=== PATIENT | female | born 1945 ===

== ENCOUNTER 2024-10-01 10:30 | Inpatient (IN) | payer OTHER ==
[~2024-10-01] VITALS: Ht 162.6 cm; Wt 59.0 kg
[2024-10-01] MEDS ORDERED: ENALAPRIL MALEA10 MG PO (15:56)
[2024-10-01] MEDS ORDERED: ROSUVASTATIN CA20 MG PO (15:57)
[2024-10-01] MEDS ORDERED: D3-5000125 MCG PO (15:57)
[2024-10-01 16:05] VITALS: BP 128/87
[2024-10-03 13:08] LABS: RH NEGATIVE
[2024-10-06] MEDS ORDERED: ACETAMINOPHEN 500 MG GEL..CAP PO SCH (18:51)
[2024-10-06] MEDS ORDERED: RINGERS SOLUTION,LACTATED 1,000 ML IV SCH (19:00)
[2024-10-06] MEDS ORDERED: ONDANSETRON HCL 2 MG/ML VIAL IV PRN (19:00)
[2024-10-06] MEDS ORDERED: ENALAPRILAT DIHYDRATE 1.25 MG/ML VIAL IV PRN (19:00)
[2024-10-06] MEDS ORDERED: TRAMADOL HCL 50 MG TABLET PO PRN (19:00)
[2024-10-06] MEDS ORDERED: MORPHINE SULFATE 2 MG/ML CARTRIDGE IV PRN (19:00)
[2024-10-06 19:53] LABS: HEMATOCRIT 33.3 % (36.0-45.00); HEMOGLOBIN 11.1 g/dL (12.0-15.00); MEAN CELL VOLUME 86.4 fL (80.00-100.00); MEAN CORPUSCULAR HEMOGLOBIN 28.8 pg (27.00-32.0); MEAN CORPUSCULAR HGB CONC 33.3 g/dl (32.0-36.0); PLATELET COUNT 244 K/uL (150-450); RED BLOOD COUNT 3.85 M/uL (4.00-6.00); RED CELL DISTRIBUTION WIDTH 13.8 % (11.5-14.5)
[2024-10-06 20:07] LABS: ALBUMIN 3.4 gm/dL (3.4-5.0); CALCIUM 8.5 mg/dL (8.5-10.1); CREATININE SERUM 0.82 mg/dL (0.55-1.02); GFR 67.78; MAGNESIUM 1.8 mg/dL (1.8-2.4); PHOSPHOROUS 3.9 mg/dL (2.5-4.9); POTASSIUM 3.95 mEq/L (3.5-5.1)
[2024-10-06] MEDS ORDERED: SIMETHICONE 125 MG CAPSULE PO SCH (21:00)
[2024-10-06] MEDS ORDERED: FAMOTIDINE/PF 20 MG/10 ML SYRINGE IV PUSH SCH (21:00)
[2024-10-06 21:52] VITALS: BP 144/66; O2SAT 97
[2024-10-06] MEDS ORDERED: POVIDONE-IODINE 118 ML BOTT TOP ONE (22:00)
[2024-10-06] MEDS ORDERED: DIBUCAINE 30 GM TUBE RECTAL ONE (22:00)
[2024-10-06] MEDS ORDERED: HEMOSTATIC MATRIX 1 KIT KIT TOP ONE (22:00)
[2024-10-06] MEDS ORDERED: LIDOCAINE HCL 1%/EPINEPHRINE 20ML VIAL IJ ONE (22:00)
[2024-10-06] MEDS ORDERED: METRONIDAZOLE/SODIUM CHLORIDE 500 MG/100 ML PIGGYBACK IV ONE (22:00)
[2024-10-06] MEDS ORDERED: CEFTRIAXONE SODIUM 2,000 MG VIAL IV ONE (22:00)
[2024-10-06] MEDS ORDERED: BUPIVACAINE HCL 30 ML VIAL IJ ONE (22:00)
[2024-10-07 00:18] VITALS: BP 124/58; O2SAT 98
[2024-10-07 06:47] LABS: HEMOGLOBIN 10.6 g/dL (12.0-15.00); MEAN CELL VOLUME 85.1 fL (80.00-100.00); MEAN CORPUSCULAR HEMOGLOBIN 29.1 pg (27.00-32.0); MEAN CORPUSCULAR HGB CONC 34.2 g/dl (32.0-36.0); PLATELET COUNT 208 K/uL (150-450); RED BLOOD COUNT 3.65 M/uL (4.00-6.00); RED CELL DISTRIBUTION WIDTH 14.1 % (11.5-14.5)
[2024-10-07 07:41] LABS: CALCIUM 8.3 mg/dL (8.5-10.1); CREATININE SERUM 0.82 mg/dL (0.55-1.02); GFR 67.78; MAGNESIUM 1.7 mg/dL (1.8-2.4); PHOSPHOROUS 2.7 mg/dL (2.5-4.9); POTASSIUM 3.86 mEq/L (3.5-5.1)
[2024-10-07] MEDS ORDERED: NAPH,MB-DB/K PH,MBDB 1 PKT PACKET PO STA (08:35)
[2024-10-07] MEDS ORDERED: MAGNESIUM CHLORIDE 70 MG TABLET.DR PO STA (08:35)
[2024-10-07] MEDS ORDERED: MAGNESIUM CHLORIDE 70 MG TABLET.DR PO SCH (09:00)
[2024-10-07] MEDS ORDERED: FAMOTIDINE/PF 20 MG/2 ML VIAL IV PUSH SCH (09:00)
[2024-10-07] MEDS ORDERED: LACTOBACILLUS ACIDOPHILUS 1 CAP CAP PO SCH (09:00)
[2024-10-07] MEDS ORDERED: ENALAPRIL MALEATE 10 MG TABLET PO SCH (09:00)
[2024-10-07] MEDS ORDERED: ENOXAPARIN SODIUM 40 MG/0.4 ML SYRINGE SUBCUTANEO SCH (17:00)
[2024-10-07] MEDS ORDERED: POLYETHYLENE GLYCOL 3350 17 GM BLIST.PACK PO SCH (17:00)
== END 2024-10-07 10:45 | disposition home or self-care (01) | DRG 349 ==
LOC: SURH 10-06 10:30 → O/R 10-06 10:40 → SURH 10-06 19:00
PROVIDERS: ADMIT Colon & Rectal Surgery; ATTEND Colon & Rectal Surgery
PROC: 3E0T3BZ Introduction of Anesthetic Agent into Peripheral Nerves and Plexi, Percutaneous Approach (ICD-10-PCS; 2024-10-06)
PROC: 0DBP7ZZ Excision of Rectum, Via Natural or Artificial Opening (ICD-10-PCS; principal; 2024-10-06 19:00)
DX: D12.8 Benign neoplasm of rectum (principal); D3A.00 Benign carcinoid tumor of unspecified site; Z20.822 Contact with and (suspected) exposure to COVID-19